=== PATIENT | female | born 1985 | race Caucasian/White ===

== ENCOUNTER 2019-05-25 10:43 | Emergency (ER) | payer OTHER ==
[2019-05-25 10:51] VITALS: BP 140/87
--- NOTE | 2019-05-25 11:39 | ED Physician Documentation ---
PD HPI LOWER EXT INJURY - Stated complaint Stated Complaint: R FOOT PAIN/SWELLING - Chief complaint Chief Complaint: Wound - History obtained from History obtained from: Patient - History of Present Illness PD HPI LOW EXT INJURY LOCATION: Right, Foot Type of injury: Other (bite or sting) Where injury occurred: Other (boat) Timing - onset: How many days ago (4) Associated symptoms: Swelling Similar symptoms before: Has not had sx before - Additional information Additional information: The patient is a 34-year-old female who presents with swelling and rash of her right foot. The swelling started 4 days ago after a bite or sting in her right ankle while on a boat. She presents now because of continued swelling, and development of a rash on the lateral aspect of her right foot. There has been associated itching, which is diminishing. She denies fever or dyspnea. Review of Systems Constitutional: denies: Fever Nose: denies: Congestion Throat: denies: Sore throat Cardiac: denies: Chest pain / pressure Respiratory: denies: Dyspnea, Cough GI: denies: Abdominal Pain, Nausea, Vomiting Skin: reports: Rash, Bite / sting Musculoskeletal: reports: Extremity swelling (right foot.). denies: Back pain Neurologic: denies: Focal weakness, Numbness, Headache PD PAST MEDICAL HISTORY - Past Medical History Cardiovascular: Hypertension Endocrine/Autoimmune: None Psych: Depression, Anxiety, Post traumatic stress disorder - Past Surgical History Past Surgical History: No - Present Medications Home Medications: Ambulatory Orders Medication Instructions Recorded Confirmed Aspirin/Acetaminophen/Caffeine 1 each PO 14 01/30/14 [Excedrin Migraine Geltabs] Butalb/Acetaminophen/Caffeine 1 each PO Q6H PRN #20 tablet 01/30/14 [Qmldex-Eewnqjra-Qrpx 50-325-40] Hydrocodone/Acetaminophen 1 each PO Q6H PRN #20 tablet 01/30/14 [Hydrocodon-Acetaminophen 5-325] Promethazine [Phenergan] 25 mg PO Q6H PRN #15 tab 01/30/14 Zolmitriptan [Zolmitriptan Odt] 2.5 mg PO BID 01/30/14 01/30/14 predniSONE [Deltasone] 40 mg PO DAILY 5 Days tablet 01/30/14 Clotrimazole [Clotrimazole AF] 28 gm TP BID #2 cream..g. 05/25/19 traMADol [Ultram] 50 mg PO Q4-6H #10 tablet 05/25/19 - Allergies Allergies/Adverse Reactions: Allergies Allergy/AdvReac Type Severity Reaction Status Date / Time No Known Drug Allergies Allergy Verified 01/30/14 15:58 - Social History Does the pt smoke?: Yes Smoking Status: Current every day smoker Does the pt drink ETOH?: Yes Does the pt have substance abuse?: No - Immunizations Immunizations are current?: Yes PD ED PE NORMAL - Vitals Vital signs reviewed: Yes (Borderline hypertension initially.) - General General: Alert and oriented X 3, Well developed/nourished - HEENT HEENT: Atraumatic, Pharynx benign - Neck Neck: No adenopathy - Cardiac Cardiac: RRR - Respiratory Respiratory: No respiratory distress, Clear bilaterally - Abdomen Abdomen: Soft, Non tender - Derm Derm: Other (Scaly rash is noted along the lateral margin of the right foot. There are tiny vesicles at the margin.) - Extremities Extremities: Other (there is mild swelling at the lateral aspect of the right ankle, consistent with localized reaction bite or sting from an insect or spider.) - Neuro Neuro: Alert and oriented X 3, No motor deficit, No sensory deficit Results - Vitals Vitals: Oxygen O2 Source Room air PD MEDICAL DECISION MAKING - ED course Complexity details: considered differential, d/w patient ED course: There is swelling at the patient's right ankle is consistent with localized reaction to a bite or sting from a spider or insect. The superficial rash at the lateral aspect of foot may be associated with that injury, but looks suspiciously typical of athletes foot. Clinically this does not appear to be consistent with cellulitis. The patient is being discharged with prescription for clotrimazole ointment. Because of the pain associated with the injury, tramadol 10 tablets was prescribed. I discussed with her the likely diagnosis, topical antifungal treatment and outpatient follow-up, as well as potentially worrisome signs or symptoms that should prompt reevaluation in the emergency department. Departure - Departure Disposition: 01 Home, Self Care Clinical Impression: Bite or sting by insect, Athlete's foot on right Condition: Stable Instructions: ED Fungal Infec Athlete Foot, ED Bite Sting Insect Local Allergic React Follow-Up: FREDERICK Berger [Provider Group] Prescriptions: Clotrimazole [Clotrimazole AF] 28 gm TP BID #2 cream..g. traMADol [Ultram] 50 mg PO Q4-6H #10 tablet Comments: Keep your right foot elevated as much of the time as possible. You can use ibuprofen, up to 800 mg 3 times daily for anti-inflammatory effect. You can use tramadol as prescribed if needed for pain. Apply antifungal cream to your right foot twice daily. Follow-up with your primary physician within 1 week. Call to schedule appointment. Return to the emergency department if you develop increasing redness, swelling, pain of your foot, or otherwise worsening symptoms. Discharge Date/Time: 05/25/19 11:48
== END 2019-05-25 11:48 | disposition home or self-care (01) ==
LOC: ED 10:43
DX: S90.861A Insect bite (nonvenomous), right foot, initial encounter (principal); W57.XXXA Bitten or stung by nonvenomous insect and other nonvenomous arthropods, initial encounter; Y92.814 Boat as the place of occurrence of the external cause; B35.3 Tinea pedis; I10 Essential (primary) hypertension; F17.200 Nicotine dependence, unspecified, uncomplicated
CPT/HCPCS: 99282; 99283